=== PATIENT | female | born 1980 | race Caucasian/White ===

== ENCOUNTER 2016-02-27 05:00 | Inpatient (IN) | payer OTHER ==
[~2016-02-27 05:00] MED LIST: SODIUM CHLORIDE 0.9% 50 ML 25 ML IV PRN
[2016-02-27] MEDS: LACTATED RINGERS 1,000 ML IV SCH ×4 (05:00→13:37)
[2016-02-27] MEDS ORDERED: CITRIC ACID/SODIUM CITRATE SOL PO SCH (05:45)
[2016-02-27] MEDS ORDERED: MORPHINE SULFATE 0.5 MG/ML SOL ONE (06:15)
[2016-02-27] MEDS ORDERED: CEFAZOLIN SODIUM 1 GM PDS IV ONE (06:50)
[2016-02-27] MEDS ORDERED: LACTATED RINGERS 1,000 ML with OXYTOCIN 10000 MU/ML 20 MU IV ONE (07:12)
[2016-02-27 08:14] VITALS: RESP 16
[2016-02-27 09:36] LABS: APPEARANCE,URINE Clear; BILIRUBIN,URINE NEGATIVE (NEGATIVE); COLOR,URINE Light yellow; GLUCOSE, URINE (UA) NEGATIVE (NEGATIVE); KETONES,URINE NEGATIVE (NEGATIVE); LEUKOCYTE ESTERASE ,URINE NEGATIVE (NEGATIVE); NITRATE,URINE NEGATIVE (NEGATIVE); OCCULT BLOOD,URINE NEGATIVE (NEG-TRACE); UROBILINOGEN,URINE 0.2 (0.2-1.0 EU)
[2016-02-27 09:52] LABS: RBC,URINE 0-1 (0-3AV/HPF); WBC,URINE 0-1 (0-5AV/HPF)
[2016-02-27] MEDS ORDERED: ONDANSETRON HCL 4 MG/2 ML SOL IV PRN (09:58)
[2016-02-27] MEDS ORDERED: WITCH HAZEL 1 EA PAD TOP PRN (09:58)
[2016-02-27] MEDS ORDERED: FLEET ENEMA PR PRN (09:58)
[2016-02-27] MEDS ORDERED: METHYLERGONOVINE MALEATE 0.2 MG TAB PO PRN (09:58)
[2016-02-27] MEDS ORDERED: TEMAZEPAM 15MG 15 MG CAP PO PRN (09:58)
[2016-02-27] MEDS ORDERED: BISACODYL 10 MG SUP PR PRN (09:58)
[2016-02-27] MEDS ORDERED: BENZOCAINE/MENTHOL 1 SPR TOP PRN (09:58)
[2016-02-27] MEDS: KETOROLAC TROMETHAMINE 30 MG/ML SOL IV PRN ×2 (10:52→17:47)
[2016-02-27] MEDS: DIPHENHYDRAMINE 25 MG CAP PO PRN ×3 (10:52→21:28)
[2016-02-27] MEDS: CEFAZOLIN SODIUM 1 GM PDS 1 GM in SODIUM CHLORIDE 0.9% 100 ML 100 ML IV SCH ×2 (11:02→13:08)
[2016-02-27] MEDS ORDERED: NALBUPHINE HCL 20 MG/ML SOL IV PRN (12:25)
[2016-02-27] MEDS ORDERED: CEFAZOLIN SODIUM 1 GM PDS ONE (12:57)
[2016-02-27] MEDS ORDERED: APAP/OXYCODONE 325/5 TAB ONE ×2 (14:05→21:23)
[2016-02-27] MEDS: SODIUM CHLORIDE 0.9% FLUSH 10 ML SOL IV PRN ×2 (14:24→17:47)
[2016-02-27] MEDS: APAP/OXYCODONE 325/5 TAB PO PRN ×2 (14:34→21:27)
[2016-02-27] MEDS: DOCUSATE SODIUM 100 MG SGL PO SCH (21:28)
[2016-02-28] MEDS: LACTATED RINGERS 1,000 ML IV SCH (00:05)
[2016-02-28] MEDS ORDERED: APAP/OXYCODONE 325/5 TAB ONE ×5 (00:31→20:44)
[2016-02-28] MEDS: APAP/OXYCODONE 325/5 TAB PO PRN ×5 (00:33→20:46)
[2016-02-28] MEDS: IBUPROFEN 600 MG TAB PO PRN ×3 (00:33→15:07)
[2016-02-28] MEDS: SODIUM CHLORIDE 0.9% FLUSH 10 ML SOL IV PRN (03:03)
[2016-02-28] MEDS: DIPHENHYDRAMINE 25 MG CAP PO PRN (04:33)
[2016-02-28] MEDS: DOCUSATE SODIUM 100 MG SGL PO SCH ×2 (09:13→20:46)
[2016-02-29] MEDS ORDERED: APAP/OXYCODONE 325/5 TAB ONE ×5 (01:04→20:25)
[2016-02-29] MEDS: APAP/OXYCODONE 325/5 TAB PO PRN ×5 (01:08→20:31)
[2016-02-29] MEDS ORDERED: OXYCODONE HYDROCHLORIDE 5 MG TAB ONE (06:21)
[2016-02-29 06:28] VITALS: O2SAT 96
[2016-02-29] MEDS: DOCUSATE SODIUM 100 MG SGL PO SCH ×2 (08:30→20:32)
[2016-02-29] MEDS: IBUPROFEN 600 MG TAB PO PRN ×3 (08:30→23:57)
[2016-03-01] MEDS ORDERED: APAP/OXYCODONE 325/5 TAB ONE ×2 (03:01→08:58)
[2016-03-01] MEDS: APAP/OXYCODONE 325/5 TAB PO PRN ×2 (03:04→09:00)
[2016-03-01] MEDS: IBUPROFEN 600 MG TAB PO PRN (06:04)
[2016-03-01 06:30] VITALS: BP 114/78; PULSE 63; TEMP 97.6
[2016-03-01] MEDS: DOCUSATE SODIUM 100 MG SGL PO SCH (09:00)
== END 2016-03-01 11:20 | disposition home or self-care (01) | DRG 766 ==
LOC: OBSVTOIN 05:00 → OB 05:00
PROVIDERS: ADMIT Family Medicine; ATTEND Family Medicine
PROC: 10D00Z1 Extraction of Products of Conception, Low, Open Approach (ICD-10-PCS; principal; 2016-02-27 07:00)
DX: O34.219 Maternal care for unspecified type scar from previous cesarean delivery (principal); O99.824 Streptococcus B carrier state complicating childbirth; Z37.0 Single live birth; Z3A.39 39 weeks gestation of pregnancy
CPT/HCPCS: 59025; 81001; 85018; 99070; J0690; J1885; J2275; J2590